=== PATIENT | female | born 1985 | race Caucasian/White ===

== ENCOUNTER 2021-02-20 16:56 | Inpatient (IN) | payer BC ==
[~2021-02-20] VITALS: Ht 162.6 cm; Wt 81.6 kg
[2021-02-20 17:36] LABS: HEMOGLOBIN 12.4 gm/dl (12.3-15.3); RED BLOOD COUNT 3.71 M/UL (4.00-5.10)
[2021-02-20] MEDS ORDERED: PRENATABS FA T1 EACH PO (18:05)
[2021-02-21] MEDS ORDERED: DOCUSATE SODIU100 MG PO (14:04)
[2021-02-21] MEDS ORDERED: IBUPROFEN600 MG PO (14:04)
[2021-02-21] MEDS ORDERED: HYDROCODON-ACE1 EAC4 PO (14:04)
[2021-02-22 06:16] LABS: HEMOGLOBIN 10.8 gm/dl (12.3-15.3)
== END 2021-02-22 17:09 | disposition home or self-care (01) | DRG 807 ==
LOC: GENOP 16:56 → OB 17:08
PROVIDERS: Obstetrics & Gynecology; ADMIT Obstetrics & Gynecology
PROC: 0U7C7ZZ Dilation of Cervix, Via Natural or Artificial Opening (ICD-10-PCS; 2021-02-20)
PROC: 4A1HXCZ Monitoring of Products of Conception, Cardiac Rate, External Approach (ICD-10-PCS; 2021-02-20)
PROC: 10E0XZZ Delivery of Products of Conception, External Approach (ICD-10-PCS; principal; 2021-02-21)
PROC: 3E033VJ Introduction of Other Hormone into Peripheral Vein, Percutaneous Approach (ICD-10-PCS; 2021-02-21)
PROC: 0HQ9XZZ Repair Perineum Skin, External Approach (ICD-10-PCS; 2021-02-21)
PROC: 10907ZC Drainage of Amniotic Fluid, Therapeutic from Products of Conception, Via Natural or Artificial Opening (ICD-10-PCS; 2021-02-21)
DX: O70.0 First degree perineal laceration during delivery (principal); Z37.0 Single live birth; Z3A.38 38 weeks gestation of pregnancy; Z20.822 Contact with and (suspected) exposure to COVID-19
CPT/HCPCS: 36415; 51702; 81001; 82800; 85014; 85018; 85025; 90471; J2590; J2795; J7120; U0003